=== PATIENT | female | born 2000 | race Caucasian/White ===

== ENCOUNTER 2019-05-26 19:26 | Emergency (ER) | payer SELFPAY ==
[2019-05-26 19:40] VITALS: BP 136/81
== END 2019-05-27 00:40 | disposition left against medical advice (07) ==
LOC: ER 19:26
DX: Z53.21 Procedure and treatment not carried out due to patient leaving prior to being seen by health care provider (principal)

== ENCOUNTER 2019-05-28 12:18 | Emergency (ER) | payer MEDICAID ==
[2019-05-28] MEDS ORDERED: METOCLOPRAMIDE HCL INJ/PF 10 MG/2 ML SDV IV ONE (12:55)
--- NOTE | 2019-05-28 12:56 | ER Document Report ---
ED Medical Screen (RME) - General Chief Complaint: Abdominal Pain Stated Complaint: ABDOMINAL PAIN Time Seen by Provider: 05/28/19 12:53 Notes: Patient is otherwise healthy 19-year-old female presents to the emergency department for generalized abdominal pain. Patient states she is abdominal pain for "quite some time now." Patient states she is unsure of when her last menstrual cycle was. States she feels as it may have been 4 months ago. Patient denies taking any at home tests. Patient's denying any dysuria or vaginal bleeding at this time. Patient's admitting to generalized nausea. GENERAL: Alert, interacts well. No acute distress. ABDOMEN: Soft, generalized tenderness noted all 4 quadrants. I have greeted and performed a rapid initial assessment of this patient. A comprehensive ED assessment and evaluation of the patient, analysis of test results and completion of the medical decision making process will be conducted by additional ED providers. I have specifically instructed the patient or family members with the patient to immediately return to any nursing staff should anything change in the patient's condition or with their chief complaint. This medical record was dictated with voice recognizing software. There may be grammatical, syntax errors that are unintended. TRAVEL OUTSIDE OF THE [place] IN LAST 30 DAYS: No - Related Data Allergies/Adverse Reactions: clonidine Allergy (Verified 05/28/19 12:24) Physical Exam - Vital signs Vitals: Temp Pulse Resp BP Pulse Ox 98.3 F 89 16 123/77 99 05/28/19 12:37 05/28/19 12:37 05/28/19 12:37 05/28/19 12:37 05/28/19 12:37 Course - Vital Signs Vital signs: Temp Pulse Resp BP Pulse Ox 98.3 F 89 16 123/77 99 05/28/19 12:37 05/28/19 12:37 05/28/19 12:37 05/28/19 12:37 05/28/19 12:37
[2019-05-28] MEDS ORDERED: METOCLOPRAMIDE HCL 10 MG TABLET PO ONE (13:08)
--- NOTE | 2019-05-28 13:11 | ER Document Report ---
ED General - General Chief Complaint: Abdominal Pain Stated Complaint: ABDOMINAL PAIN Time Seen by Provider: 05/28/19 12:53 TRAVEL OUTSIDE OF THE [place] IN LAST 30 DAYS: No - HPI Notes: Patient is a 19-year-old female no significant past medical history or surgical history to her abdomen who presents complaining of lower abdominal discomfort is described as a dull pain that is been present for about 1.5 weeks. Patient states that she has had intermittent nausea, vomiting, and dizziness over the past few weeks as well. Last menstrual period was 4 months ago. She is able to tolerate p.o. with the occ n/v. She has not noticed any vaginal discharge, odor, or bleeding. She is having normal bowel movements and urinating normally. Patient states that on occasion her pain will become generalized. Denies any headache, fever, neck pain, URI, sore throat, chest pain, palpitations, syncope, cough, shortness of breath, wheeze, dyspnea, diarrhea, urinary retention, dysuria, hematuria, back pain, or rash. - Related Data Allergies/Adverse Reactions: clonidine Allergy (Verified 05/28/19 12:24) Past Medical History - Social History Smoking Status: Unknown if Ever Smoked Family History: Reviewed & Not Pertinent Review of Systems - Review of Systems -: Yes All other systems reviewed and negative Physical Exam - Vital signs Vitals: Temp Pulse Resp BP Pulse Ox 98.3 F 89 16 123/77 99 05/28/19 12:37 05/28/19 12:37 05/28/19 12:37 05/28/19 12:37 05/28/19 12:37 - Notes Notes: PHYSICAL EXAMINATION: Accompanied by Dylon lees. GENERAL: Well-appearing, well-nourished and in no acute distress. Eyes: anicteric. LUNGS: Breath sounds clear to auscultation bilaterally and equal. No wheezes rales or rhonchi. HEART: Regular rate and rhythm without murmurs ABDOMEN: Soft, nondistended abdomen. No guarding, no rebound. Normal bowel sounds present. CVA tenderness negative bilaterally. + very mild tenderness lower pelvic/suprapubic area, more so midline. Marcus neg. No tenderness at [place]. Female : No inguinal adenopathy. External genitalia without erythema, lesions, or masses. Vaginal mucosa pink with scant white discharge. Cervix parous, pink, and without discharge. Uterus is smooth. No adnexal tenderness. No obvious hernia. No CMT. Extremities: No cyanosis/clubbing/edema b/l. Peripheral pulses 2+. Capillary refill less than 3 seconds. NEUROLOGICAL: Normal speech, normal gait. PSYCH: Normal mood, normal affect. SKIN: Warm, Dry, normal turgor, no rashes or lesions noted. Course - Re-evaluation Re-evalutation: 05/28/19 16:23 Patient is an afebrile, well-hydrated, 19-year-old female who presents with lower pelvic pain with noted ovarian cyst on the left side as well as having chlamydia. Vitals are acceptable without significant tachycardia, tachypnea, or hypoxia. PE is otherwise patient has no abdominal, rebound/guarding. She is n ontoxic-appearing and is able to tolerate p.o. without difficulty. No obvious cervical motion tenderness on exam. Patient received Zithromax as well as Rocephin. Lab work is otherwise unremarkable. See ultrasound. No further work-up warranted. Low suspicion/risk for acute appendicitis, bowel o bstruction, acute cholecystitis, acute cholangitis, perforated diverticulitis, incarcerated hernia, pancreatitis, perforated ulcer, peritonitis, sepsis, severe pelvic inflammatory disease, ectopic , tubo-ovarian abscess, ovarian torsion, or other systemic emergent condition at this time. Patient is aware that her condition can change from initial presentation and she needs to monitor symptoms closely and seek medical attention if any acute changes. Even though the low suspicion for significant PID, patient is starting to have lower pelvic pain so I will send her home with a prescription for doxycycline. Sunlight precautions reviewed. Conservative measures otherwise for symptoms. Recheck with OBGYN/health department in 3-5 days. Recheck with your PCM as needed otherwise. Return to the ED with any worsening/concerning symptoms otherwise as reviewed in discharge. Patient is in agreement. - Vital Signs Vital signs: Temp Pulse Resp BP Pulse Ox 98.3 F 89 16 123/77 99 05/28/19 12:37 05/28/19 12:37 05/28/19 12:37 05/28/19 12:37 05/28/19 12:37 - Laboratory Result Diagrams: 05/28/19 13:10 05/28/19 13:10 Laboratory results interpreted by me: 05/28/19 05/28/19 13:10 14:19 Ur Leukocyte Esterase TRACE H Chlamydia DNA (PCR) DETECTED H Procedures - Pelvic Exam Pelvic exam Cultures obtained: Yes Wet prep obtained: Yes Bimanual exam performed: Yes - negative Witnessed by: dylon lees Discharge - Discharge Clinical Impression: Chlamydia, Pelvic pain Ovarian cyst Qualifiers: Laterality: left Qualified Code(s): N83.202 - Unspecified ovarian cyst, left side Condition: Stable Disposition: HOME, SELF-CARE Instructions: Chlamydia ([facility]), Doxycycline ([facility]) Additional Instructions: Maintain fluid intake Proper hygienic technique Keep the skin clean Safe sexual practices with condoms everytime Tylenol/ibuprofen as needed Check in with the health department in 3 to 5 days F/u with your PCM/OBGYN in 3-5 days for a recheck Return to the ED with any development of FERGUSON/fever, trouble with vision, eye redness, worsening pain, urethral discharge, urinary retention, blood in the urine, flank pain, abdominal pain, n/v, Chest Pain, shortness of breath, joint pains, trouble breathing, or any other worsening/concerning symptoms as needed otherwise. Prescriptions: Doxycycline Hyclate 100 mg PO BID #20 capsule Referrals: HEALTH DEPT,[facility] [NO LOCAL MD] - Follow up in 3-5 days
[2019-05-28 13:25] LABS: ABSOLUTE EOSINOPHILS # (AUTO) 0.2 10^3/uL (0.0-0.6); ABSOLUTE LYMPHOCYTES (AUTO) 1.7 10^3/uL (0.5-4.7); ABSOLUTE MONOCYTES (AUTO) 0.5 10^3/uL (0.1-1.4); ABSOLUTE NEUT (AUTO) 6.1 10^3/uL (1.7-8.2); BASOPHILS % (AUTO) 0.6 % (0-2); EOSINOPHILS % (AUTO) 2.3 % (0-6); HEMATOCRIT 40.7 % (36.0-47.0); HEMOGLOBIN 13.9 g/dL (12.0-15.5); LYMPHOCYTES % (AUTO) 20.3 % (13-45); MEAN CORPUSCULAR HEMOGLOBIN 29.4 pg (27.0-33.4); MEAN CORPUSCULAR HGB CONC 34.1 g/dL (32.0-36.0); MEAN CORPUSCULAR VOLUME 86 fl (80-97); MONOCYTES % (AUTO) 5.9 % (3-13); PLATELET COUNT 273 10^3/uL (150-450); RED BLOOD COUNT 4.71 10^6/uL (3.72-5.28); RED CELL DISTRIBUTION WIDTH 13.7 % (11.5-14.0); SEGMENTED NEUTROPHILS % (AUTO) 70.9 % (42-78); TOTAL CELLS COUNTED % (AUTO) 100 %; WHITE BLOOD COUNT 8.5 10^3/uL (4.0-10.5)
[2019-05-28 13:32] LABS: APPEARANCE,URINE CLEAR; BILIRUBIN,URINE NEGATIVE (NEGATIVE); COLOR,URINE YELLOW; GLUCOSE, URINE NEGATIVE (NEGATIVE); KETONES,URINE NEGATIVE (NEGATIVE); LEUKOCYTE ESTERASE,URINE TRACE (NEGATIVE); NITRITE,URINE NEGATIVE (NEGATIVE); PROTEIN,URINE NEGATIVE (NEGATIVE); URINE SPECIFIC GRAVITY 1.014; UROBILINOGEN,URINE NEGATIVE mg/dL (<2.0)
[2019-05-28 13:45] LABS: ALANINE AMINOTRANSFERASE 17 U/L (9-52); ALBUMIN 4.2 g/dL (3.5-5.0); ALKALINE PHOSPHATASE 103 U/L (38-126); ANION GAP 10 (5-19); ASPARTATE AMINO TRANSFERASE 22 U/L (14-36); BILIRUBIN,DIRECT 0.2 mg/dL (0.0-0.4); BILIRUBIN,TOTAL 0.4 mg/dL (0.2-1.3); BLOOD UREA NITROGEN 10 mg/dL (7-20); CALCIUM 9.5 mg/dL (8.4-10.2); CARBON DIOXIDE 25 mmol/L (22-30); CHLORIDE 104 mmol/L (98-107); GLUCOSE 83 mg/dL (75-110); POTASSIUM 4.3 mmol/L (3.6-5.0); TOTAL PROTEIN 7.7 g/dL (6.3-8.2)
[2019-05-28 14:31] LABS: BACTERIA (WET MOUNT) 4+ BACTERIA SEEN; RBCS (WET MOUNT) RARE RBCS SEEN; T.VAGINALIS (WET MOUNT) NO TRICHOMONAS SEEN; WBCS (WET MOUNT) 2+ WBCS SEEN; YEAST (WET MOUNT) NO YEAST SEEN
[2019-05-28 15:59] LABS: CHLAM PCR DETECTED (NOT DETECT)
--- NOTE | 2019-05-28 16:04 | RADIOLOGY REPORT (SQ) ---
EXAM DESCRIPTION: U/S NON OB PEL TV W/DOPPLER COMPLETED DATE/TIME: 05/28/2019 3:54 pm REASON FOR STUDY: pelvic pain COMPARISON: None. TECHNIQUE: Dynamic and static grayscale images acquired of the pelvis via transvaginal approach and recorded on PACS. Additional selected color Doppler and spectral images recorded. LIMITATIONS: None. FINDINGS: UTERUS: Contour normal. No mass. ENDOMETRIAL STRIPE: No focal or generalized thickening. No masses. CERVIX: No nabothian cysts. RIGHT OVARY AND DOPPLER: Normal size. No worrisome masses. Normal arterial vascular flow without evid ence for torsion. LEFT OVARY AND DOPPLER: Normal size. Simple cyst measuring 2 cm. No worrisome masses. Normal arteri al vascular flow without evidence for torsion. FREE FLUID: None noted. OTHER: No other significant finding. MEASUREMENTS: UTERUS: 3 x 4.3 x 5.9 cm. ENDOMETRIAL STRIPE: 4.6 mm. RIGHT OVARY: 2.1 x 2.5 x 2.5 cm. LEFT OVARY: 2.5 x 3 x 3.6 cm. IMPRESSION: 2 CM LEFT OVARIAN CYST. OTHERWISE NORMAL TRANSVAGINAL PELVIC ULTRASOUND. TECHNICAL DOCUMENTATION: JOB ID: [id number] [employer]- All Rights Reserved Rev Reading location - IP/workstation name: [email or web address]
[2019-05-28] MEDS ORDERED: LIDOCAINE 1% INJ-PF (10 MG/ML) 30 ML SDV INJ ONE (16:23)
[2019-05-28] MEDS ORDERED: AZITHROMYCIN 250 MG TABLET PO ONE (16:23)
[2019-05-28] MEDS ORDERED: CEFTRIAXONE INJ 250 MG VIAL IM ONE (16:23)
[2019-05-28 17:10] VITALS: BP 119/82
== END 2019-05-28 17:10 | disposition home or self-care (01) ==
LOC: ER 12:18
DX: N83.202 Unspecified ovarian cyst, left side (principal); A74.9 Chlamydial infection, unspecified; R10.2 Pelvic and perineal pain; R42 Dizziness and giddiness; R10.30 Lower abdominal pain, unspecified; R11.2 Nausea with vomiting, unspecified
CPT/HCPCS: 99284; 96372; 36415; 87210; 84702; 83690; 85025; 80053; 81001; 87491; 87591; 76830; 93976; Q0144; J3490 ×2; J0696

== ENCOUNTER 2019-06-11 10:19 | Emergency (ER) | payer MEDICAID ==
--- NOTE | 2019-06-11 10:50 | ER Document Report ---
ED Medical Screen (RME) - General Chief Complaint: Abdominal Cramping Stated Complaint: ABDOMINAL PAIN Time Seen by Provider: 06/11/19 10:47 Primary Care Provider: [facility] [Provider Group] - Follow up as needed [facility] [Provider Group] - Follow up as needed Mode of Arrival: Ambulatory Information source: Patient Notes: 19-year-old female presented to ED for complaint "dizziness, blurred vision, coming in and out vision for 1-1/2 hours, cramping in the ribs, and stomach pain." Patient states she is on her menstrual cycle the only medical history she has is asthma anxiety depression bipolar ADHD and PTSD. She denies smoking drinking or using any kind of drugs. She is on her menstrual period at this time. Patient is alert oriented respirations regular and unlabored speaking in full sentences walks with a even steady. I have greeted and performed a rapid initial assessment of this patient. A comprehensive ED assessment and evaluation of the patient, analysis of test results and completion of medical decision making process will be conducted by an additional ED providers. Dictation of this chart was performed using voice recognition software; therefore, there may be some unintended grammatical errors. TRAVEL OUTSIDE OF THE [place] IN LAST 30 DAYS: No - Related Data Allergies/Adverse Reactions: clonidine Allergy (Verified 06/11/19 10:20) Past Medical History Pulmonary Medical History: Reports: Hx Asthma Renal/ Medical History: Denies: Hx Peritoneal Dialysis Physical Exam - Vital signs Vitals: Temp Pulse Resp BP Pulse Ox 98.4 F 85 16 115/72 100 06/11/19 10:25 06/11/19 10:25 06/11/19 10:25 06/11/19 10:25 06/11/19 10:25 Course - Vital Signs Vital signs: Temp Pulse Resp BP Pulse Ox 97.7 F 77 17 130/86 H 100 06/11/19 17:27 06/11/19 17:27 06/11/19 17:27 06/11/19 17:27 06/11/19 17:27 - Laboratory Result Diagrams: 06/11/19 11:40 06/11/19 11:40 Laboratory results interpreted by me: 06/11/19 06/11/19 11:06 11:40 Carbon Dioxide 31 H AST 67 H Urine Blood LARGE H Ur Leukocyte Esterase TRACE H Doctor's Discharge - Discharge Clinical Impression: UTI (urinary tract infection), Dizziness, Serous otitis media, Abdominal pain, Gastritis Condition: Stable Disposition: HOME, SELF-CARE Instructions: Abdominal Pain ([facility]), Cephalexin ([facility]), Gastritis ([facility]), Serous Otitis Media ([facility]), Urinary Tract Infection ([facility]) Additional Instructions: Return immediately for any new or worsening symptoms Followup with your primary care provider, call tomorrow to make a followup appointment Take Sudafed nepz-[id number]-bsklqsk as well as Zyrtec to help with congestion symptoms that can cause dizziness Prescriptions: Cephalexin Monohydrate [Keflex 500 mg Capsule] 500 mg PO BID 5 Days capsule Omeprazole Magnesium [Prilosec Otc] 20 mg PO DAILY #15 tablet.dr Forms: Return to Work Referrals: [facility] [Provider Group] - Follow up as needed [facility] [Provider Group] - Follow up as needed
[2019-06-11 11:27] LABS: APPEARANCE,URINE SLIGHTLY-CLOUDY; BILIRUBIN,URINE NEGATIVE (NEGATIVE); COLOR,URINE YELLOW; GLUCOSE, URINE NEGATIVE (NEGATIVE); KETONES,URINE NEGATIVE (NEGATIVE); LEUKOCYTE ESTERASE,URINE TRACE (NEGATIVE); NITRITE,URINE NEGATIVE (NEGATIVE); PROTEIN,URINE NEGATIVE (NEGATIVE); URINE SPECIFIC GRAVITY 1.013; UROBILINOGEN,URINE NEGATIVE mg/dL (<2.0)
[2019-06-11 11:33] LABS: ADD MANUAL MICROSCOPIC YES
[2019-06-11 11:39] LABS: BACTERIA,URINE TRACE /HPF
[2019-06-11 11:58] LABS: ABSOLUTE EOSINOPHILS # (AUTO) 0.2 10^3/uL (0.0-0.6); ABSOLUTE LYMPHOCYTES (AUTO) 1.8 10^3/uL (0.5-4.7); ABSOLUTE MONOCYTES (AUTO) 0.4 10^3/uL (0.1-1.4); ABSOLUTE NEUT (AUTO) 5.8 10^3/uL (1.7-8.2); BASOPHILS % (AUTO) 0.4 % (0-2); EOSINOPHILS % (AUTO) 2.7 % (0-6); HEMATOCRIT 42.1 % (36.0-47.0); HEMOGLOBIN 14.1 g/dL (12.0-15.5); LYMPHOCYTES % (AUTO) 21.6 % (13-45); MEAN CORPUSCULAR HEMOGLOBIN 29.3 pg (27.0-33.4); MEAN CORPUSCULAR HGB CONC 33.5 g/dL (32.0-36.0); MEAN CORPUSCULAR VOLUME 88 fl (80-97); MONOCYTES % (AUTO) 5.2 % (3-13); PLATELET COUNT 267 10^3/uL (150-450); RED BLOOD COUNT 4.81 10^6/uL (3.72-5.28); SEGMENTED NEUTROPHILS % (AUTO) 70.1 % (42-78); TOTAL CELLS COUNTED % (AUTO) 100 %; WHITE BLOOD COUNT 8.3 10^3/uL (4.0-10.5)
[2019-06-11 12:19] LABS: ALBUMIN 4.8 g/dL (3.5-5.0); ALKALINE PHOSPHATASE 85 U/L (38-126); ANION GAP 8 (5-19); ASPARTATE AMINO TRANSFERASE 67 U/L (14-36); BILIRUBIN,DIRECT 0.2 mg/dL (0.0-0.4); BILIRUBIN,TOTAL 0.4 mg/dL (0.2-1.3); BLOOD UREA NITROGEN 12 mg/dL (7-20); CALCIUM 9.9 mg/dL (8.4-10.2); CARBON DIOXIDE 31 mmol/L (22-30); CHLORIDE 101 mmol/L (98-107); GLUCOSE 76 mg/dL (75-110); POTASSIUM 4.2 mmol/L (3.6-5.0); TOTAL PROTEIN 8.2 g/dL (6.3-8.2)
[2019-06-11] MEDS ORDERED: NORMAL SALINE 1000 ML 1,000 ML IV ONE (14:34)
[2019-06-11] MEDS ORDERED: LIDOCAINE 2% VISCOUS SOLN 20 ML UDCUP PO ONE (14:34)
[2019-06-11] MEDS ORDERED: MECLIZINE HCL 25 MG TABLET PO ONE (14:34)
[2019-06-11] MEDS ORDERED: MAG HYDROX/AL HYDROX/SIMETH SUSP 30 ML UDCUP PO ONE (14:34)
[2019-06-11] MEDS ORDERED: PSEUDOEPHEDRINE HCL 30 MG TABLET PO ONE (14:34)
--- NOTE | 2019-06-11 14:38 | ER Document Report ---
ED General - General Chief Complaint: Abdominal Cramping Stated Complaint: ABDOMINAL PAIN Time Seen by Provider: 06/11/19 10:47 Primary Care Provider: [facility] [Provider Group] - Follow up as needed [facility] [Provider Group] - Follow up as needed Mode of Arrival: Ambulatory Notes: Patient presents complaining of dizziness that started just prior to arrival with some blurred vision. Patient states that she is supposed to wear glasses although not been wearing any recently. Patient also complains of left upper quadrant abdominal pain and rib pain. Patient denies any cough or injury. Patient denies any nausea vomiting or diarrhea. Patient denies any fever. Patient does report some urinary frequency. TRAVEL OUTSIDE OF THE [place] IN LAST 30 DAYS: No - HPI Onset: This afternoon Onset/Duration: Gradual Pain Level: 3 Associated symptoms: Other - Left rib pain, left upper quadrant pain. denies: Chest pain, Nonproductive cough, Productive cough, Diarrhea, Fever, Headache, Nausea, Vomiting Exacerbated by: Denies Relieved by: Denies Similar symptoms previously: No Recently seen / treated by doctor: Yes - Related Data Allergies/Adverse Reactions: clonidine Allergy (Verified 06/11/19 10:20) Past Medical History - General Information source: Patient - Social History Smoking Status: Never Smoker Frequency of alcohol use: None Drug Abuse: None Occupation: plumbing foreman Family History: Reviewed & Not Pertinent Patient has suicidal ideation: No Patient has homicidal ideation: No Pulmonary Medical History: Reports: Hx Asthma Renal/ Medical History: Denies: Hx Peritoneal Dialysis Psychiatric Medical History: Reports: Hx Attention Deficit Hyperactivity Disorder, Hx Bipolar Disorder, Hx Depression Surgical Hx: Negative Review of Systems - Review of Systems Constitutional: No symptoms reported. denies: Fever, Recent illness EENT: No symptoms reported Cardiovascular: Chest pain - Left lateral rib pain, Dizziness Respiratory: No symptoms reported. denies: Cough, Hurts to breathe, Short of breath, Sputum Gastrointestinal: Abdominal pain. denies: Diarrhea, Nausea, Vomiting Genitourinary: Frequency. denies: Dysuria, Flank pain, Hematuria Female Genitourinary: No symptoms reported Musculoskeletal: No symptoms reported. denies: Back pain Skin: No symptoms reported Hematologic/Lymphatic: No symptoms reported Neurological/Psychological: No symptoms reported. denies: Weakness, Headaches Physical Exam - Vital signs Vitals: Temp Pulse Resp BP Pulse Ox 98.4 F 85 16 115/72 100 08/08/19 10:25 06/11/19 10:25 06/11/19 10:25 06/11/19 10:25 06/11/19 10:25 - HEENT Head: Normocephalic Eyes: Normal Conjunctiva: Normal Visual acuity- Right eye: 20/50 Visual acuity- Left eye: 20/50 Visual acuity- Both eyes: 20/40 Corrective lenses worn: No Ears: Normal External canal: Normal Tympanic membrane: Serous effusion Nasal: Normal Mouth/Lips: Normal Mucous membranes: Normal Neck: Normal, Supple. No: Lymphadenopathy - Respiratory Respiratory status: No respiratory distress Chest status: Nontender Breath sounds: Normal. No: Rales, Rhonchi, Stridor, Wheezing Chest palpation: Normal - Cardiovascular Rhythm: Regular Heart sounds: S1 appreciated, S2 appreciated Murmur: No - Abdominal Inspection: Normal Distension: No distension Bowel sounds: Normal Tenderness: Tender - epig,LUQ Organomegaly: No organomegaly - Back Back: Normal, Nontender. No: CVA tenderness - Extremities General upper extremity: Normal inspection, Nontender, Normal strength General lower extremity: Normal inspection, Nontender, Normal strength - Neurological Neuro grossly intact: Yes Cognition: Normal [place] Coma Scale Eye Opening: Spontaneous [place] Coma Scale Verbal: Oriented [place] Coma Scale Motor: Obeys Commands [place] Coma Scale Total: 15 - Psychological Associated symptoms: Normal affect, Normal mood - Skin Skin Temperature: Warm Skin Moisture: Dry Skin Color: Normal Course - Re-evaluation Re-evalutation: 06/11/19 16:[address] scan report reviewed, no concern for any hepatosplenomegaly. No other acute findings noted on scan to explain patient's epigastric and left upper quadrant abdominal pain. - Vital Signs Vital signs: Temp Pulse Resp BP Pulse Ox 98.4 F 85 16 115/72 100 06/11/19 10:25 06/11/19 10:25 06/11/19 10:25 06/11/19 10:25 06/11/19 10:25 - Laboratory Result Diagrams: 06/11/19 11:40 06/11/19 11:40 Laboratory results interpreted by me: 06/11/19 06/11/19 11:06 11:40 Carbon Dioxide 31 H AST 67 H Urine Blood LARGE H Ur Leukocyte Esterase TRACE H 06/11/19 16:39 Labs- Entire Visit 06/11/19 06/11/19 06/11/19 11:06 11:20 11:40 WBC 8.3 RBC 4.81 Hgb 14.1 Hct 42.1 MCV 88 MCH 29.3 MCHC 33.5 RDW 14.0 Plt Count 267 Seg Neutrophils % 70.1 Lymphocytes % 21.6 Monocytes % 5.2 Eosinophils % 2.7 Basophils % 0.4 Absolute Neutrophils 5.8 Absolute Lymphocytes 1.8 Absolute Monocytes 0.4 Absolute Eosinophils 0.2 Absolute Basophils 0.0 Sodium Potassium Chloride Carbon Dioxide Anion Gap BUN Creatinine Est GFR ( Amer) Est GFR (Non-Af Amer) Glucose POC Glucose 91 Calcium Total Bilirubin Direct Bilirubin Neonat Total Bilirubin Neonat Direct Bilirubin Neonat Indirect Bili AST ALT Alkaline Phosphatase Total Protein Albumin Lipase Serum HCG, Qual Urine Color YELLOW Urine Appearance SLIGHTLY-CLOUDY Urine pH 7.0 Ur Specific [place] 1.013 Urine Protein NEGATIVE Urine Glucose (UA) NEGATIVE Urine Ketones NEGATIVE Urine Blood LARGE H Urine Nitrite NEGATIVE Urine Bilirubin NEGATIVE Urine Urobilinogen NEGATIVE Ur Leukocyte Esterase TRACE H Urine RBC 10-20 Urine WBC 1-5 Ur Squamous Epith Cells MODERATE Urine Bacteria TRACE Urine Ascorbic Acid NEGATIVE Chlamydia DNA (PCR) Monotest N.gonorrhoeae DNA (PCR) 06/11/19 06/11/19 06/11/19 11:40 11:40 11:40 WBC RBC Hgb Hct MCV MCH MCHC RDW Plt Count Seg Neutrophils % Lymphocytes % Monocytes % Eosinophils % Basophils % Absolute Neutrophils Absolute Lymphocytes Absolute Monocytes Absolute Eosinophils Absolute Basophils Sodium 140.4 Potassium 4.2 Chloride 101 Carbon Dioxide 31 H Anion Gap 8 BUN 12 Creatinine 0.90 Est GFR ( Amer) > 60 Est GFR (Non-Af Amer) > 60 Glucose 76 POC Glucose Calcium 9.9 Total Bilirubin 0.4 Direct Bilirubin 0.2 Neonat Total Bilirubin Not Reportable Neonat Direct Bilirubin Not Reportable Neonat Indirect Bili Not Reportable AST 67 H ALT 37 Alkaline Phosphatase 85 Total Protein 8.2 Albumin 4.8 Lipase 104.5 Serum HCG, Qual NEGATIVE Urine Color Urine Appearance Urine pH Ur Specific [place] Urine Protein Urine Glucose (UA) Urine Ketones Urine Blood Urine Nitrite Urine Bilirubin Urine Urobilinogen Ur Leukocyte Esterase Urine RBC Urine WBC Ur Squamous Epith Cells Urine Bacteria Urine Ascorbic Acid Chlamydia DNA (PCR) Monotest NEGATIVE N.gonorrhoeae DNA (PCR) 08/08/19 14:45 WBC RBC Hgb Hct MCV MCH MCHC RDW Plt Count Seg Neutrophils % Lymphocytes % Monocytes % Eosinophils % Basophils % Absolute Neutrophils Absolute Lymphocytes Absolute Monocytes Absolute Eosinophils Absolute Basophils Sodium Potassium Chloride Carbon Dioxide Anion Gap BUN Creatinine Est GFR ( Amer) Est GFR (Non-Af Amer) Glucose POC Glucose Calcium Total Bilirubin Direct Bilirubin Neonat Total Bilirubin Neonat Direct Bilirubin Neonat Indirect Bili AST ALT Alkaline Phosphatase Total Protein Albumin Lipase Serum HCG, Qual Urine Color Urine Appearance Urine pH Ur Specific [place] Urine Protein Urine Glucose (UA) Urine Ketones Urine Blood Urine Nitrite Urine Bilirubin Urine Urobilinogen Ur Leukocyte Esterase Urine RBC Urine WBC Ur Squamous Epith Cells Urine Bacteria Urine Ascorbic Acid Chlamydia DNA (PCR) NOT DETECTED Monotest N.gonorrhoeae DNA (PCR) NOT DETECTED - Diagnostic Test Radiology reviewed: Reports reviewed Discharge - Discharge Clinical Impression: Dizziness UTI (urinary tract infection) Qualifiers: Urinary tract infection type: site unspecified Hematuria presence: with hematuria Qualified Code(s): N39.0 - Urinary tract infection, site not specified Serous otitis media Qualifiers: Chronicity: acute Laterality: bilateral Recurrence: not specified as recurrent Qualified Code(s): H65.03 - Acute serous otitis media, bilateral Abdominal pain Qualifiers: Abdominal location: left upper quadrant Qualified Code(s): R10.12 - Left upper quadrant pain Gastritis Qualifiers: Gastritis type: unspecified gastritis Chronicity: acute Gastritis bleeding: without bleeding Qualified Code(s): K29.00 - Acute gastritis without bleeding Condition: Stable Disposition: HOME, SELF-CARE Instructions: Abdominal Pain ([facility]), Cephalexin ([facility]), Gastritis ([facility]), Serous Otitis Media ([facility]), Urinary Tract Infection ([facility]) Additional Instructions: Return immediately for any new or worsening symptoms Followup with your primary care provider, call tomorrow to make a followup appointment Take Sudafed hmyg-ngx-ganerga as well as Zyrtec to help with congestion symptoms that can cause dizziness Prescriptions: Cephalexin Monohydrate [Keflex 500 mg Capsule] 500 mg PO BID 5 Days capsule Omeprazole Magnesium [Prilosec Otc] 20 mg PO DAILY #15 tablet.dr Forms: Return to Work Referrals: [facility] [Provider Group] - Follow up as needed [facility] [Provider Group] - Follow up as needed
--- NOTE | 2019-06-11 15:14 | RADIOLOGY REPORT (SQ) ---
EXAM DESCRIPTION: ACUTE ABDOMEN SERIES COMPLETED DATE/TIME: 06/11/2019 3:04 pm REASON FOR STUDY: LUQ pain COMPARISON: None. NUMBER OF VIEWS: Three views. TECHNIQUE: Frontal chest, supine abdomen and upright/decubitus abdomen radiographic images acquired. LIMITATIONS: None. FINDINGS: CHEST: Lungs clear of infiltrates. FREE AIR: None. No abnormal gas collections. BOWEL GAS PATTERN: Nonobstructive pattern. No dilated loops or air fluid levels. CALCIFICATIONS: No suspicious calcifications. HARDWARE: None in the abdomen. SOFT TISSUES: The transverse colon is low-lying in the abdomen and the liver is mildly enlarged, billy uring 21 cm in coronal span. BONES: No acute fracture. No worrisome bone lesions. OTHER: No other significant finding. IMPRESSION: 1. Nonobstructive pattern of bowel gas with gas present to the descending colon. No la rge burden of stool in the colon. No free air in the abdomen. 2. Mild hepatomegaly. The spleen is at the upper limit of normal in projected size. Consider ultra sound or CT to further evaluate in the setting of upper abdominal pain. 3. No acute abnormality of the lungs. TECHNICAL DOCUMENTATION: JOB ID: [id number] [employer]- All Rights Reserved Reading location - IP/workstation name: [email or web address]
--- NOTE | 2019-06-11 16:01 | RADIOLOGY REPORT (SQ) ---
EXAM DESCRIPTION: CT ABD/PELVIS WITH IV ONLY COMPLETED DATE/TIME: 06/11/2019 3:50 pm REASON FOR STUDY: LUQ pain, eval liver/spleen COMPARISON: None. TECHNIQUE: CT scan of the abdomen and pelvis performed using helical scanning technique with dynamic intravenous contrast injection. No oral contrast. Images reviewed with lung, soft tissue, and bone windows. Reconstructed coronal and sagittal MPR images reviewed. Delayed images were not acquired. Al l images stored on PACS. All CT scanners at this facility use dose modulation, iterative reconstruction, and/or weight based d osing when appropriate to reduce radiation dose to as low as reasonably achievable (ALARA). [facility]: Dose Right [facility]: CareDose [facility]: Dose Right [facility]: Teradose 4D [facility]: [employer] CONTRAST TYPE AND DOSE: contrast/concentration: Isovue 350.00 mg/ml; Total Contrast Delivered: 57.0 ml; Total Saline Delivered: 65.0 ml RENAL FUNCTION: None required. The patient is less than 50 years old. RADIATION DOSE: CT Rad equipment meets quality standard of care and radiation dose reduction techniq ues were employed. CTDIvol: NaN - NaN mGy. DLP: 0 mGy-cm.. LIMITATIONS: Same day abdominal radiograph FINDINGS: LOWER CHEST: No significant findings. No nodules or infiltrates. LIVER: Normal size. Coronal span by CT is 17 cm. No masses. No dilated ducts. SPLEEN: Normal size. Maximum span by CT 11.5 cm. No focal lesions. PANCREAS: No masses. No significant calcifications. No adjacent inflammation or peripancreatic fluid collections. Pancreatic duct not dilated. GALLBLADDER: No identified stones by CT criteria. No inflammatory changes to suggest cholecystitis. ADRENAL GLANDS: No significant masses or asymmetry. RIGHT KIDNEY AND URETER: No solid masses. No significant calcifications. No hydronephrosis or hyd roureter. LEFT KIDNEY AND URETER: No solid masses. No significant calcifications. No hydronephrosis or hydr oureter. AORTA AND VESSELS: No aneurysm. No dissection. Renal arteries, SMA, celiac without stenosis. RETROPERITONEUM: No retroperitoneal adenopathy, hemorrhage or masses. BOWEL AND PERITONEAL CAVITY: No masses or inflammatory changes. No free fluid or peritoneal masses. APPENDIX: Not clearly visualized. No secondary findings of inflammation in the right lower quadrant. PELVIS: No mass. No free fluid. Normal bladder. ABDOMINAL WALL: No masses. No hernias. BONES: No significant or acute findings. OTHER: No other significant finding. IMPRESSION: Normal size of the liver and spleen by CT without CT abnormality of the abdomen or pelvi s to explain upper abdominal pain. The TECHNICAL DOCUMENTATION: JOB ID: [id number] Quality ID # [id number]: Final reports with documentation of one or more dose reduction techniques (e.g., Au tomated exposure control, adjustment of the mA and/or kV according to patient size, use of iterative reconstruction technique) 2010 [employer]- All Rights Reserved Reading location - IP/workstation name: [email or web address]
[2019-06-11 16:33] LABS: CHLAM PCR NOT DETECTED (NOT DETECT)
[2019-06-11 17:29] VITALS: BP 130/86
== END 2019-06-11 17:29 | disposition home or self-care (01) ==
LOC: ER 10:19
DX: H65.03 Acute serous otitis media, bilateral (principal); K29.00 Acute gastritis without bleeding; N39.0 Urinary tract infection, site not specified; R42 Dizziness and giddiness; R10.12 Left upper quadrant pain; R10.9 Unspecified abdominal pain; H53.8 Other visual disturbances; R07.81 Pleurodynia; R35.0 Frequency of micturition; J45.909 Unspecified asthma, uncomplicated
CPT/HCPCS: 36415; 82962; 83690; 84703; 85025; 86308; 80053; 81001; 87491; 87591; 74022; 74177; J3490 ×2; J7030; 87086

== ENCOUNTER 2019-07-14 00:11 | Emergency (ER) | payer MEDICAID ==
[2019-07-14 01:38] LABS: ABSOLUTE EOSINOPHILS # (AUTO) 0.3 10^3/uL (0.0-0.6); ABSOLUTE LYMPHOCYTES (AUTO) 2.7 10^3/uL (0.5-4.7); ABSOLUTE MONOCYTES (AUTO) 0.7 10^3/uL (0.1-1.4); ABSOLUTE NEUT (AUTO) 5.9 10^3/uL (1.7-8.2); BASOPHILS % (AUTO) 0.4 % (0-2); EOSINOPHILS % (AUTO) 2.8 % (0-6); HEMATOCRIT 39.7 % (36.0-47.0); HEMOGLOBIN 13.4 g/dL (12.0-15.5); LYMPHOCYTES % (AUTO) 27.9 % (13-45); MEAN CORPUSCULAR HEMOGLOBIN 29.8 pg (27.0-33.4); MEAN CORPUSCULAR HGB CONC 33.9 g/dL (32.0-36.0); MEAN CORPUSCULAR VOLUME 88 fl (80-97); MONOCYTES % (AUTO) 7.4 % (3-13); PLATELET COUNT 246 10^3/uL (150-450); RED BLOOD COUNT 4.52 10^6/uL (3.72-5.28); RED CELL DISTRIBUTION WIDTH 13.7 % (11.5-14.0); SEGMENTED NEUTROPHILS % (AUTO) 61.5 % (42-78); TOTAL CELLS COUNTED % (AUTO) 100 %; WHITE BLOOD COUNT 9.6 10^3/uL (4.0-10.5)
[2019-07-14 01:52] LABS: APPEARANCE,URINE SLIGHTLY-CLOUDY; BILIRUBIN,URINE NEGATIVE (NEGATIVE); COLOR,URINE YELLOW; GLUCOSE, URINE NEGATIVE (NEGATIVE); KETONES,URINE NEGATIVE (NEGATIVE); LEUKOCYTE ESTERASE,URINE SMALL (NEGATIVE); NITRITE,URINE NEGATIVE (NEGATIVE); PROTEIN,URINE NEGATIVE (NEGATIVE); URINE SPECIFIC GRAVITY 1.019
[2019-07-14 01:54] LABS: ALBUMIN 4.4 g/dL (3.5-5.0); ALKALINE PHOSPHATASE 75 U/L (38-126); ANION GAP 9 (5-19); ASPARTATE AMINO TRANSFERASE 25 U/L (14-36); BILIRUBIN,TOTAL 0.5 mg/dL (0.2-1.3); BLOOD UREA NITROGEN 16 mg/dL (7-20); CALCIUM 9.4 mg/dL (8.4-10.2); CARBON DIOXIDE 28 mmol/L (22-30); CHLORIDE 102 mmol/L (98-107); GLUCOSE 79 mg/dL (75-110); POTASSIUM 4.2 mmol/L (3.6-5.0); TOTAL PROTEIN 7.4 g/dL (6.3-8.2)
[2019-07-14] MEDS ORDERED: SUCRALFATE 1 GM TABLET PO ONE (02:40)
[2019-07-14] MEDS ORDERED: FAMOTIDINE 20 MG TABLET PO ONE (02:40)
[2019-07-14] MEDS ORDERED: HYDROCODONE/ACETAMINOPHEN 5-325 MG (6 TAB/ER DISP) PO PRN (02:40)
--- NOTE | 2019-07-14 02:42 | ER Document Report ---
ED GI/ - General Chief Complaint: Abdominal Pain Stated Complaint: RIB PAIN/DIFFICULTY BREATHING Time Seen by Provider: 07/14/19 02:22 Notes: Patient is a 19-year-old female that comes emergency department for chief complaint of left upper quadrant pain that radiates around to her back. She states she notices the pain when she is lying down, the pain is much worse when she is eating, she vomited earlier today. She denies right upper quadrant pain, lower abdominal pain, vaginal bleeding or discharge, dysuria, fever/chills. She denies any surgeries. She recently had a work-up for her symptoms last month including a x-ray of the chest/abdomen and a CAT scan but these were all negative. Patient denies blood in the vomit, hematochezia, or abnormal bowel movements. When asked she admits to very high levels of caffeine, frequent sp icy food, and she states that she stopped drinking heavy alcohol but she has done so somewhat recently. She denies recreational drugs. Significant other at bedside. TRAVEL OUTSIDE OF THE [place] IN LAST 30 DAYS: No - Related Data Allergies/Adverse Reactions: clonidine Allergy (Verified 07/14/19 02:20) Past Medical History - General Information source: Patient - Social History Smoking Status: Never Smoker Frequency of alcohol use: Social Drug Abuse: None Lives with: Family Family History: Reviewed & Not Pertinent Patient has suicidal ideation: No Patient has homicidal ideation: No Pulmonary Medical History: Reports: Hx Asthma Renal/ Medical History: Denies: Hx Peritoneal Dialysis Psychiatric Medical History: Reports: Hx Attention Deficit Hyperactivity Disorder, Hx Bipolar Disorder, Hx Depression Surgical Hx: Negative - Immunizations Immunizations up to date: Yes Hx Diphtheria, Pertussis, Tetanus Vaccination: Yes Review of Systems - Review of Systems Constitutional: No symptoms reported EENT: No symptoms reported Cardiovascular: No symptoms reported Respiratory: No symptoms reported Gastrointestinal: See HPI Genitourinary: No symptoms reported Female Genitourinary: No symptoms reported Musculoskeletal: No symptoms reported Skin: No symptoms reported Hematologic/Lymphatic: No symptoms reported Neurological/Psychological: No symptoms reported Physical Exam - Vital signs Vitals: Temp Pulse Resp BP Pulse Ox 97.8 F 90 18 117/79 99 07/14/19 00:39 07/14/19 00:39 07/14/19 00:39 07/14/19 00:39 07/14/19 00:39 - Notes Notes: GENERAL: Alert, interacts well. No acute distress. HEAD: Normocephalic, atraumatic. EYES: Pupils equal, round, and reactive to light. Extraocular movements intact. ENT: Oral mucosa moist, tongue midline. Oropharynx unremarkable. Airway patent. LUNGS: Clear to auscultation bilaterally, no wheezes, rales, or rhonchi. No respiratory distress. HEART: Regular rate and rhythm. No murmur ABDOMEN: Patient is tender with wincing in the left upper quadrant and mildly tender in the epigastric area. Right upper quadrant unremarkable, lower abdomen unremarkable. No guarding or rigidity. Bowel sounds present. EXTREMITIES: Moves all 4 extremities spontaneously. No edema, normal radial and dorsalis pedis pulses bilaterally. No cyanosis. BACK: no cervical, thoracic, lumbar midline tenderness. No saddle anesthesia, normal distal neurovascular exam. Moves all extremities in full range of motion. NEUROLOGICAL: Alert and oriented x3. Normal speech. Cranial nerves II through XII grossly intact. PSYCH: Normal affect, normal mood. SKIN: Warm, dry, normal turgor. No rashes or lesions noted. Course - Re-evaluation Re-evalutation: Patient is well-appearing on my exam. She has left upper quadrant tenderness and mild epigastric tenderness on my evaluation. She points to this area as the area of concern as well. No CVA tenderness. Lungs clear, no hypoxia, unremarkable vital signs. She recently had a full work-up including CAT scan which was unremarkable. CBC, chemistry, lipase, urinalysis, urine test unremarkable. Based on patient's exam, work-up, previous work-up, and poor habits I strongly suspect gastritis as the cause of her symptoms. I discussed the habits in detail, the work-up in detail, the recommendations, the follow-up, and the return precautions. Patient states appreciation and agreement. Patient stable at time of discharge. - Vital Signs Vital signs: Temp Pulse Resp BP Pulse Ox 97.7 F 72 18 107/73 98 07/14/19 03:01 07/14/19 03:01 07/14/19 03:01 07/14/19 03:01 07/14/19 03:01 - Laboratory Result Diagrams: 07/14/19 01:20 07/14/19 01:20 Laboratory results interpreted by me: 07/14/19 01:20 Urine Urobilinogen 2.0 H Ur Leukocyte Esterase SMALL H Discharge - Discharge Clinical Impression: Left upper quadrant pain Condition: Stable Disposition: HOME, SELF-CARE Additional Instructions: Your symptoms and examination indicate gastritis (inflammation of your upper gastrointestinal tract). Take Phenergan for nausea, take Carafate and Pepcid as prescribed to help treat this, take Tylenol for pain, take the provided pain medication from here only for severe pain. You can also take additional Rolaids, Tums, Maalox, etc. if needed. Avoid NSAIDs, alcohol, smoking, caffeine, spicy food. Start with clear fluids, progress to bland diet. Follow-up with primary care for additional evaluation and treatment including possible H. pylori testing or possibly endoscopy. Return if you worsen including uncontrolled vomiting, vomiting blood, black stools, severe pain, fever of 100.4 or greater, or any other concerning or worsening symptoms. Prescriptions: Sucralfate [Carafate 1 gm Tablet] 1 gm PO QID #20 tablet Famotidine [Pepcid 20 mg Tablet] 20 mg PO BID #14 tablet Promethazine HCl [Phenergan 25 mg Tablet] 25 mg PO Q6H PRN #15 tablet PRN Reason:
[2019-07-14 03:02] VITALS: BP 107/73
== END 2019-07-14 03:01 | disposition home or self-care (01) ==
LOC: ER 00:11
DX: R10.12 Left upper quadrant pain (principal); R10.812 Left upper quadrant abdominal tenderness; R10.816 Epigastric abdominal tenderness; J45.909 Unspecified asthma, uncomplicated; Z88.8 Allergy status to other drugs, medicaments and biological substances
CPT/HCPCS: 36415; 83690; 85025; 81025; 80053; 81001; J3490 ×2; 99284

== ENCOUNTER 2019-07-20 03:44 | Emergency (ER) | payer MEDICAID ==
[2019-07-20] MEDS ORDERED: ONDANSETRON HCL INJ/PF 4 MG/2 ML SDV IV ONE (04:04)
[2019-07-20 04:35] LABS: ABSOLUTE EOSINOPHILS # (AUTO) 0.3 10^3/uL (0.0-0.6); ABSOLUTE LYMPHOCYTES (AUTO) 2.2 10^3/uL (0.5-4.7); ABSOLUTE MONOCYTES (AUTO) 0.5 10^3/uL (0.1-1.4); ABSOLUTE NEUT (AUTO) 3.9 10^3/uL (1.7-8.2); BASOPHILS % (AUTO) 0.5 % (0-2); EOSINOPHILS % (AUTO) 4.1 % (0-6); HEMATOCRIT 38.4 % (36.0-47.0); HEMOGLOBIN 13.1 g/dL (12.0-15.5); LYMPHOCYTES % (AUTO) 31.3 % (13-45); MEAN CORPUSCULAR HEMOGLOBIN 29.9 pg (27.0-33.4); MEAN CORPUSCULAR VOLUME 88 fl (80-97); MONOCYTES % (AUTO) 7.8 % (3-13); PLATELET COUNT 234 10^3/uL (150-450); RED BLOOD COUNT 4.38 10^6/uL (3.72-5.28); RED CELL DISTRIBUTION WIDTH 13.5 % (11.5-14.0); SEGMENTED NEUTROPHILS % (AUTO) 56.3 % (42-78); TOTAL CELLS COUNTED % (AUTO) 100 %; WHITE BLOOD COUNT 6.9 10^3/uL (4.0-10.5)
[2019-07-20 04:37] LABS: APPEARANCE,URINE CLEAR; BILIRUBIN,URINE NEGATIVE (NEGATIVE); COLOR,URINE YELLOW; GLUCOSE, URINE NEGATIVE (NEGATIVE); KETONES,URINE NEGATIVE (NEGATIVE); LEUKOCYTE ESTERASE,URINE LARGE (NEGATIVE); NITRITE,URINE NEGATIVE (NEGATIVE); PROTEIN,URINE 30 mg/dL (NEGATIVE); UROBILINOGEN,URINE NEGATIVE mg/dL (<2.0)
[2019-07-20 04:56] LABS: BACTERIA (WET MOUNT) 3+ BACTERIA SEEN; EPITHELIALS (WET MOUNT) 3+ EPITHELIALS SEEN; T.VAGINALIS (WET MOUNT) NO TRICHOMONAS SEEN; WBCS (WET MOUNT) FEW WBCS SEEN; YEAST (WET MOUNT) NO YEAST SEEN
[2019-07-20 04:56] LABS: ALBUMIN 4.6 g/dL (3.5-5.0); ALKALINE PHOSPHATASE 76 U/L (38-126); ANION GAP 10 (5-19); ASPARTATE AMINO TRANSFERASE 22 U/L (14-36); BILIRUBIN,DIRECT 0.1 mg/dL (0.0-0.4); BILIRUBIN,TOTAL 0.3 mg/dL (0.2-1.3); BLOOD UREA NITROGEN 12 mg/dL (7-20); CALCIUM 9.6 mg/dL (8.4-10.2); CARBON DIOXIDE 26 mmol/L (22-30); CHLORIDE 102 mmol/L (98-107); GLUCOSE 120 mg/dL (75-110); POTASSIUM 3.6 mmol/L (3.6-5.0); TOTAL PROTEIN 7.7 g/dL (6.3-8.2)
[2019-07-20 04:58] LABS: URINE SPECIFIC GRAVITY 1.028
[2019-07-20] MEDS ORDERED: METRONIDAZOLE 500 MG TABLET PO ONE (05:00)
[2019-07-20] MEDS ORDERED: DOXYCYCLINE HYCLATE 100 MG TABLET PO ONE (05:00)
[2019-07-20] MEDS ORDERED: AZITHROMYCIN 250 MG TABLET PO ONE (05:01)
[2019-07-20] MEDS ORDERED: CEFTRIAXONE INJ 250 MG VIAL IM ONE (05:01)
[2019-07-20] MEDS ORDERED: NORMAL SALINE 1000 ML 1,000 ML IV ONE (05:21)
--- NOTE | 2019-07-20 05:55 | RADIOLOGY REPORT (SQ) ---
EXAM DESCRIPTION: US PELVIS TRANSVAGINAL COMPLETED DATE/TME: 07/20/2019 04:57 CLINICAL HISTORY: 19 years Female, pelvic pn Comparison:Jun 11 2019, CT Technique: Transvaginal. LIMITATIONS: None. FINDINGS: 8-cm uterus, 1.2-cm endometrial stripe thickness, 3.7-cm right ovary, and 3.0-cm left ovary appear normal in size, shape, echotexture, and vascularity. No free fluid. IMPRESSION: Normal pelvic sonogram.
--- NOTE | 2019-07-20 05:58 | ER Document Report ---
ED GI/ - General Chief Complaint: Abdominal Pain Stated Complaint: ABDOMINAL PAIN Time Seen by Provider: 07/20/19 03:59 Notes: Patient is a 19-year-old female presents to the emergency department for generalized pelvic pain. Patient's complaining of vomiting x1 denies fevers or diarrhea. Patient states she does have a malodorous vaginal discharge but is denying any dysuria. Patient's denying any back pain. Past medical history: Asthma, ADHD, anxiety, depression, bipolar Medications: None Allergies: Clonidine Last menstrual cycle 2 weeks ago. TRAVEL OUTSIDE OF THE [place] IN LAST 30 DAYS: No - Related Data Allergies/Adverse Reactions: clonidine Allergy (Verified 07/20/19 03:59) Past Medical History - General Information source: Patient - Social History Smoking Status: Never Smoker Frequency of alcohol use: None Drug Abuse: None Family History: Reviewed & Not Pertinent Patient has suicidal ideation: No Patient has homicidal ideation: No Pulmonary Medical History: Reports: Hx Asthma Renal/ Medical History: Denies: Hx Peritoneal Dialysis Psychiatric Medical History: Reports: Hx Attention Deficit Hyperactivity Disorder, Hx Bipolar Disorder, Hx Depression - Immunizations Immunizations up to date: Yes Hx Diphtheria, Pertussis, Tetanus Vaccination: Yes Review of Systems - Review of Systems Constitutional: denies: Fever EENT: No symptoms reported Cardiovascular: No symptoms reported Respiratory: No symptoms reported Gastrointestinal: See HPI Genitourinary: See HPI Female Genitourinary: See HPI Musculoskeletal: No symptoms reported Skin: No symptoms reported Hematologic/Lymphatic: No symptoms reported Neurological/Psychological: No symptoms reported Physical Exam - Vital signs Vitals: Temp Pulse Resp BP Pulse Ox 97.7 F 97 16 114/78 97 07/20/19 03:50 07/20/19 03:50 07/20/19 03:50 07/20/19 03:50 07/20/19 03:50 - Notes Notes: GENERAL: Alert, interacts well. No acute distress. HEAD: Normocephalic, atraumatic. EYES: Pupils equal, round, and reactive to light. Extraocular movements intact. ENT: Oral mucosa moist, tongue midline. NECK: Full range of motion. Supple. Trachea midline. LUNGS: Clear to auscultation bilaterally, no wheezes, rales, or rhonchi. No respiratory distress. HEART: Regular rate and rhythm. No murmur ABDOMEN: Soft, no McBurney's point tenderness, no Marcus sign noted. Non- distended. Bowel sounds present in all 4 quadrants. Generalized bilateral pelvic pain noted. EXTREMITIES: Moves all 4 extremities spontaneously. No edema, normal radial and dorsalis pedis pulses bilaterally. No cyanosis. BACK: no cervical, thoracic, lumbar midline tenderness. No saddle anesthesia, normal distal neurovascular exam. No CVA tenderness noted bilaterally. NEUROLOGICAL: Alert and oriented x3. Normal speech. cranial nerves II through XII grossly intact PSYCH: Normal affect, normal mood. SKIN: Warm, dry, normal turgor. No rashes or lesions noted. Genitalia: Machine Tool Builder Cristela RN, malodorous white discharge noted in the cul-de-sac, positive cervical motion tenderness, slight adnexal tenderness noted bilaterally. Course - Re-evaluation Re-evalutation: 07/20/19 06:02 Laboratory 07/20/19 07/20/19 07/20/19 04:15 04:15 04:15 WBC 6.9 RBC 4.38 Hgb 13.1 Hct 38.4 MCV 88 MCH 29.9 MCHC 34.0 RDW 13.5 Plt Count 234 Lymph % (Auto) 31.3 Harris % (Auto) 7.8 Eos % (Auto) 4.1 Baso % (Auto) 0.5 Absolute Neuts (auto) 3.9 Absolute Lymphs (auto) 2.2 Absolute Monos (auto) 0.5 Absolute Eos (auto) 0.3 Absolute Basos (auto) 0.0 Seg Neutrophils % 56.3 Sodium 138.2 Potassium 3.6 Chloride 102 Carbon Dioxide 26 Anion Gap 10 BUN 12 Creatinine 0.73 Est GFR ( Amer) > 60 Est GFR (MDRD) Non-Af > 60 Glucose 120 H Calcium 9.6 Total Bilirubin 0.3 Direct Bilirubin 0.1 Neonat Total Bilirubin Not Reportable Neonat Direct Bilirubin Not Reportable Neonat Indirect Bili Not Reportable AST 22 ALT 12 Alkaline Phosphatase 76 Total Protein 7.7 Albumin 4.6 Lipase 99.5 Urine Color YELLOW Urine Appearance CLEAR Urine pH 6.0 Ur Specific [place] 1.028 Urine Protein 30 H Urine Glucose (UA) NEGATIVE Urine Ketones NEGATIVE Urine Blood NEGATIVE Urine Nitrite NEGATIVE Urine Bilirubin NEGATIVE Urine Urobilinogen NEGATIVE Ur Leukocyte Esterase LARGE H Urine WBC (Auto) 10 Urine RBC (Auto) 3 Urine Bacteria (Auto) TRACE Squamous Epi Cells Auto 10 Urine Mucus (Auto) FEW Urine Ascorbic Acid NEGATIVE Urine HCG, Qual Epi Cells (Wet Prep) Bacteria (Wet Prep) Trichomonas (Wet Prep) Vaginal WBC Vaginal Yeast 07/20/19 07/20/19 04:15 04:36 WBC RBC Hgb Hct MCV MCH MCHC RDW Plt Count Lymph % (Auto) Harris % (Auto) Eos % (Auto) Baso % (Auto) Absolute Neuts (auto) Absolute Lymphs (auto) Absolute Monos (auto) Absolute Eos (auto) Absolute Basos (auto) Seg Neutrophils % Sodium Potassium Chloride Carbon Dioxide Anion Gap BUN Creatinine Est GFR ( Amer) Est GFR (MDRD) Non-Af Glucose Calcium Total Bilirubin Direct Bilirubin Neonat Total Bilirubin Neonat Direct Bilirubin Neonat Indirect Bili AST ALT Alkaline Phosphatase Total Protein Albumin Lipase Urine Color Urine Appearance Urine pH Ur Specific [place] Urine Protein Urine Glucose (UA) Urine Ketones Urine Blood Urine Nitrite Urine Bilirubin Urine Urobilinogen Ur Leukocyte Esterase Urine WBC (Auto) Urine RBC (Auto) Urine Bacteria (Auto) Squamous Epi Cells Auto Urine Mucus (Auto) Urine Ascorbic Acid Urine HCG, Qual NEGATIVE Epi Cells (Wet Prep) 3+ EPITHELIALS SEEN Bacteria (Wet Prep) 3+ BACTERIA SEEN Trichomonas (Wet Prep) NO TRICHOMONAS SEEN Vaginal WBC FEW WBCS SEEN Vaginal Yeast NO YEAST SEEN Transvaginal US 07/20/19 04:57 IMPRESSION: Normal pelvic sonogram. Patient's wet mount shows signs of bacterial vaginosis. Based on patient's physical exam with cervical motion tenderness and malodorous vaginal discharge I will treat for pelvic inflammatory disease. Patient's gonorrhea and Chlamydia testing are still pending. She was prophylactically treated with ceftriaxone and azithromycin in the emergency room. Patient has had no further episodes of vomiting after Zofran administration. Has been able to drink water with no difficulty. States she overall feels a lot better. At this time will discharge with return precautions and follow-up recom mendations. Verbal discharge instructions given a the bedside and opportunity for questions given. Medication warnings reviewed. Patient is in agreement with this plan and has verbalized understanding of return precautions and the need for primary care follow-up in the next 24-72 hours. This medical record was dictated with voice recognizing software. There may be grammatical, syntax errors that are unintended. - Vital Signs Vital signs: Temp Pulse Resp BP Pulse Ox 97.7 F 97 16 114/78 97 07/20/19 03:50 07/20/19 03:50 07/20/19 03:50 07/20/19 03:50 07/20/19 03:50 - Laboratory Result Diagrams: 07/20/19 04:15 07/20/19 04:15 Laboratory results interpreted by me: 07/20/19 07/20/19 04:15 04:15 Glucose 120 H Urine Protein 30 H Ur Leukocyte Esterase LARGE H Discharge - Discharge Clinical Impression: Bacterial vaginosis, Pelvic inflammatory disease, Pelvic pain Condition: Stable Disposition: HOME, SELF-CARE Instructions: Pelvic Inflammatory Disease ([facility]), Vaginosis, Bacterial ([facility]) Additional Instructions: You has been seen and treated in the emergency department for a pelvic infection. Please take antibiotics as prescribed. Please also refrain from sexual activity while on antibiotics. Please follow-up with your primary care provider next 24 to 48 hours. Return to the emergency room for any further concerns. Prescriptions: Doxycycline Hyclate 100 mg PO BID 14 Days capsule Metronidazole [Flagyl 500 mg Tablet] 500 mg PO BID 14 Days tablet Ondansetron [Zofran Odt 4 mg Tablet] 1 tab PO Q6 PRN #10 tab.rapdis PRN Reason: For Nausea/Vomiting
[2019-07-20 06:18] VITALS: BP 102/64
[2019-07-20 06:22] LABS: CHLAM PCR DETECTED (NOT DETECT)
== END 2019-07-20 06:19 | disposition home or self-care (01) ==
LOC: ER 03:44
DX: N76.0 Acute vaginitis (principal); B96.89 Other specified bacterial agents as the cause of diseases classified elsewhere; N73.9 Female pelvic inflammatory disease, unspecified; R10.2 Pelvic and perineal pain; R10.9 Unspecified abdominal pain; R11.10 Vomiting, unspecified
CPT/HCPCS: 36415; 87210; 83690; 85025; 81025; 80053; 81001; 87491; 87591; 76830; 93976; Q0144; J3490 ×2; J2405; J7030; J0696; 96361; 96374; 99284

== ENCOUNTER 2020-08-04 21:22 | Outpatient (CLI) | payer MEDICAID ==
--- NOTE | 2020-08-04 22:31 | Non Stress Test Report ---
Non Stress Test Datetime Report Generated by CPN: 08/04/2020 22:31 DEMOGRAPHIC EGA NST: 36.6 INDICATION Indication for Study (NST) Other: lc for mucus plug VITAL SIGNS Temperature - NST: 98.7 RESP - NST: 16 MONITORING Monitor Explained: Monitor Explained; Test Explained; Patient Verbalized Understanding Time on Monitor: 08/04/2020 21:40 Time off Monitor: 08/04/2020 22:23 NST Duration: 43 NST INTERVENTIONS NST Interventions: Reposition Patient Physician Notified NST: Dr Schmid BABY A: [id number] BABY A Movement : Present Contraction Frequency : irreg FHR Baseline : 140 Accelerations : 15X15 Decelerations : None Variability : Moderate 6-25bpm NST Review: Meets Criteria for Reactive NST NST Review and Verified By : Nano Granger RN NST Results: Reactive NST REPORT Report Trigger: Send Report
== END 2020-08-04 22:34 | disposition home or self-care (01) ==
LOC: LC 21:22
PROVIDERS: ATTEND Obstetrics & Gynecology Gynecology
DX: Z34.03 Encounter for supervision of normal first pregnancy, third trimester (principal); Z3A.36 36 weeks gestation of pregnancy; Z88.8 Allergy status to other drugs, medicaments and biological substances
CPT/HCPCS: 84112